=== PATIENT | male | born 1985 | race Caucasian/White ===

== ENCOUNTER 2017-02-23 12:51 | Emergency (ER) | payer SELFPAY ==
[~2017-02-23] VITALS: Ht 167.6 cm; Wt 74.1 kg
[2017-02-23 12:53] VITALS: TEMP 98.9
[2017-02-23] MEDS ORDERED: NORCO 325 MG-51 TAB PO (15:07)
[2017-02-23 15:47] VITALS: BP 114/67; PULSE 88
== END 2017-02-23 15:49 | disposition home or self-care (01) ==
LOC: COL.ER 12:51
DX: S20.212A Contusion of left front wall of thorax, initial encounter (principal); W10.8XXA Fall (on) (from) other stairs and steps, initial encounter; Y92.008 Other place in unspecified non-institutional (private) residence as the place of occurrence of the external cause
CPT/HCPCS: J1885